=== PATIENT | female | born 1945 | race African-American/Black ===

== ENCOUNTER 2019-08-03 22:10 | Emergency (ER) | payer OTHER ==
[~2019-08-03] VITALS: Ht 147.3 cm; Wt 126.6 kg
[2019-08-03] MEDS ORDERED: VITAMIN D32000 UNI2 PO (22:34)
[2019-08-03] MEDS ORDERED: COUMADIN 2 MG TA2 M1 PO (22:35)
[2019-08-03] MEDS ORDERED: FUROSEMIDE 20 M20 MG PO (22:36)
[2019-08-03] MEDS ORDERED: LINZESS145 MCG PO (22:37)
[2019-08-03] MEDS ORDERED: LORAZEPAM 1 MG T1 MG PO (22:37)
[2019-08-03] MEDS ORDERED: FERROUS SULFAT325 MG PO (22:38)
[2019-08-03] MEDS ORDERED: LIPITOR 20 MG T20 M1 PO (22:39)
[2019-08-03] MEDS ORDERED: TOPROL XL25 MG PO (22:39)
[2019-08-03] MEDS ORDERED: SUMATRIPTAN PO (22:40)
[2019-08-03 23:00] LABS: ABSOLUTE EOSINOPHILS 0.2 thou/uL (0.0-0.7); ABSOLUTE LYMPHOCYTES 1.5 thou/uL (0.8-5.3); ABSOLUTE MONOCYTES 0.5 thou/uL (0.0-1.2); ABSOLUTE NEUTROPHILS 2.4 thou/uL (1.6-8.1); BASOPHILS 1.1 %; EOSINOPHILS 4.8 %; HEMOGLOBIN 10.8 gm/dL (12.0-15.0); LYMPHOCYTES 31.8 %; MCH 29.4 pg (26.0-34.0); MCHC 33.7 g/dL (28.0-37.0); MCV 87.1 fL (80.0-100.0); MONOCYTES 10.9 %; MPV 7.3 fl. (7.2-11.1); NUCLEATED RBCS 0 /100WBC; PLATELET COUNT* 195 thou/uL (150-400); POLYS 51.4 %; RBC 3.67 mil/uL (4.20-5.00); RDW-CV 15.4 % (10.5-14.5); WBC 4.6 thou/uL (4.0-11.0)
[2019-08-03 23:04] LABS: CALCIUM 8.4 mg/dL (8.5-10.1); CREATININE 1.3 mg/dL (0.6-1.3); POTASSIUM 3.9 mmol/L (3.5-5.1)
[2019-08-03 23:08] LABS: INR 2.6; PROTIME 25.5 Seconds (9.20-11.50)
[2019-08-03 23:15] LABS: ALBUMIN 3.6 g/dL (3.4-5.0); TOTAL BILIRUBIN 0.3 mg/dL (<0.1-1.0); TOTAL PROTEIN 7.7 g/dL (6.4-8.2)
[2019-08-04 00:34] LABS: INFLUENZA A ANTIGEN Negative (Negative); INFLUENZA B ANTIGEN Negative (Negative)
[2019-08-04 01:07] LABS: URINE BILIRUBIN NEGATIVE (Negative); URINE BLOOD TRACE (Negative); URINE CLARITY CLEAR; URINE COLOR YELLOW; URINE GLUCOSE-RANDOM NEGATIVE (Negative); URINE KETONES NEGATIVE (Negative); URINE LEUKOCYTES-REFLEX NEGATIVE (Negative); URINE NITRITE-REFLEX NEGATIVE (Negative); URINE PROTEIN NEGATIVE (Negative); URINE SPECIFIC GRAVITY 1.015 (1.005-1.030); URINE UROBILINOGEN 0.2 E.U./dl (0.2-1.0)
[2019-08-04] MEDS ORDERED: SPACERADULT INH (01:33)
[2019-08-04] MEDS ORDERED: PREDNISONE50 MG PO (01:33)
[2019-08-04] MEDS ORDERED: PROAIR HFA8.5 GM INH (01:33)
[2019-08-04 01:56] VITALS: BP 145/56
--- NOTE | 2019-08-05 11:07 | EKG ---
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 : 1945 Requested By: Stephanie Bagley Order Number: [id number] MD: Erik Allen Measurements Intervals [place] Rate: 71 P: -45 NE: 177 QRS: 84 QRSD: 102 T: 58 QT: 424 QTc: 461 Interpretive Statements Sinus or ectopic atrial rhythm Nonspecific ST segment depression Borderline right axis deviation No previous ECG available for comparison Electronically Signed On 08-05-2019 11:07:03 DIGITAL STRATEGY SPECIALIST by Erik Allen [email or web address] <ELECTRONICALLY SIGNED> By: Erik Allen MD, [facility] 08/05/19 1107 2216 15 Erik Allen MD, [facility] /EPI
== END 2019-08-04 01:56 | disposition home or self-care (01) ==
LOC: M.ERS 22:10
PROVIDERS: Emergency Medicine
DX: J40 Bronchitis, not specified as acute or chronic (principal)

== ENCOUNTER 2020-04-21 12:41 | Emergency (ER) | payer OTHER ==
[~2020-04-21] VITALS: Ht 147.3 cm; Wt 113.4 kg
[~2020-04-21 12:41] MED LIST: COUMADIN 2 MG TA2 M1 PO; FERROUS SULFAT325 MG PO; FUROSEMIDE 20 M20 MG PO; LINZESS145 MCG PO; LIPITOR 20 MG T20 M1 PO; LORAZEPAM 1 MG T1 MG PO; PREDNISONE50 MG PO; PROAIR HFA8.5 GM INH; SPACERADULT INH; SUMATRIPTAN PO; TOPROL XL25 MG PO; VITAMIN D32000 UNI2 PO
[2020-04-21 13:39] LABS: ABSOLUTE LYMPHOCYTES 0.9 thou/uL (0.8-5.3); ABSOLUTE MONOCYTES 0.4 thou/uL (0.0-1.2); ABSOLUTE NEUTROPHILS 0.8 thou/uL (1.6-8.1); BASOPHILS 0.8 %; EOSINOPHILS 1.8 %; HEMATOCRIT 35.4 % (37.0-47.0); HEMOGLOBIN 11.9 gm/dL (12.0-15.0); LYMPHOCYTES 42.1 %; MCH 29.1 pg (26.0-34.0); MCHC 33.5 g/dL (28.0-37.0); MCV 86.8 fL (80.0-100.0); MONOCYTES 18.6 %; NUCLEATED RBCS 0 /100WBC; PLATELET COUNT* 180 thou/uL (150-400); POLYS 36.7 %; RBC 4.08 mil/uL (4.20-5.00); RDW-CV 15.3 % (10.5-14.5); WBC 2.1 thou/uL (4.0-11.0)
[2020-04-21 13:52] LABS: CALCIUM 8.7 mg/dL (8.5-10.1); CREATININE 1.3 mg/dL (0.6-1.3); POTASSIUM 3.8 mmol/L (3.5-5.1)
[2020-04-21 13:56] LABS: APTT 53.5 Seconds (25.0-31.3); INR 2.7; PROTIME 27.2 Seconds (9.20-11.50)
[2020-04-21 14:03] LABS: ALBUMIN 3.7 g/dL (3.4-5.0); TOTAL BILIRUBIN 0.5 mg/dL (<0.1-1.0); TOTAL PROTEIN 7.9 g/dL (6.4-8.2)
[2020-04-21] MEDS ORDERED: ZOFRAN ODT4 MG SUBLING (14:53)
[2020-04-21] MEDS ORDERED: PREDNISONE 20 M20 M1 PO (14:53)
[2020-04-21] MEDS ORDERED: ZPAK PO (14:53)
--- NOTE | 2020-04-21 17:25 | EKG ---
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: : 1945 Requested By: Jarrod Almaguer Order Number: [id number] MD: Yonatan Salinas Measurements Intervals [place] Rate: 76 P: NE: 100 QRS: 122 QRSD: 95 T: 56 QT: 443 QTc: 499 Interpretive Statements Atrial-paced complexes Right axis deviation Borderline ST depression, anterolateral leads Borderline prolonged QT interval Compared to ECG 08/03/2019 22:16:51 ST (T wave) deviation now present atrial paced beats now present Electronically Signed On 04-21-2020 17:24:55 VARIETY SAW OPERATOR by Yonatan Salinas [email or web address] <ELECTRONICALLY SIGNED> By: Yonatan Salinas MD, FAC 04/21/20 1724 1336 1336 Yonatan Salinas MD, [facility] /EPI
[2020-04-21 17:34] VITALS: BP 177/76
[2020-04-21 19:29] LABS: URINE BILIRUBIN NEGATIVE (Negative); URINE BLOOD TRACE (Negative); URINE CLARITY CLEAR; URINE COLOR YELLOW; URINE GLUCOSE-RANDOM NEGATIVE (Negative); URINE KETONES TRACE (Negative); URINE LEUKOCYTES-REFLEX NEGATIVE (Negative); URINE NITRITE-REFLEX NEGATIVE (Negative); URINE PROTEIN NEGATIVE (Negative); URINE UROBILINOGEN 0.2 E.U./dl (0.2-1.0)
== END 2020-04-21 19:30 | disposition home or self-care (01) ==
LOC: M.ERS 12:41
PROVIDERS: Family Medicine
DX: U07.1 COVID-19 (principal); I50.9 Heart failure, unspecified; Z79.899 Other long term (current) drug therapy; Z79.01 Long term (current) use of anticoagulants